=== PATIENT | male | born 1980 | race Caucasian/White ===

== ENCOUNTER → 2017-01-16 07:27 | Emergency (ER) | payer BC ==
[~2017-01-16 07:27] MED LIST: NS 0.9% 1000 ML* 1,000 ML IV ONE; Ondansetron INJ* 2 MG/ML VIAL IV ONE
[2017-01-16 08:48] LABS: Hematocrit 47 % (42-52); Mean Corpuscular HGB Conc 34 g/dl (31-36); Mean Corpuscular Hemoglobin 29 pg (27-31); Mean Corpuscular Volume 85 fL (80-94); Mean Platelet Volume 8 um3 (7.4-10.4); Red Blood Count 5.51 10^6/ul (4.0-5.4); Red Cell Distribution Width 13 % (10.5-15); White Blood Count 14.1 10^3/ul (3.5-10.8)
--- NOTE | 2017-01-16 08:55 | RAD ---
CLINICAL HISTORY: Right flank pain COMPARISON: None TECHNIQUE: Multiple contiguous axial CT scans were obtained of the abdomen and pelvis, without intravenous contrast enhancement. Coronal and sagittal multiplanar reformations are submitted for review. Oral contrast was not administered. FINDINGS: The study is limited by the lack of intravenous contrast. This limits evaluation of the solid organs and vasculature. LUNG BASES: The lung bases are clear. LIVER: The liver is diffusely low in attenuation compared to the spleen. There are no focal hepatic parenchymal masses. BILE DUCTS: There is no intrahepatic or extrahepatic biliary dilatation. GALLBLADDER: The gallbladder is normal, without pericholecystic inflammatory change. PANCREAS: The pancreas is normal, without mass or ductal dilatation. SPLEEN: Normal in size and appearance. UPPER GI TRACT: Evaluation of the gastrointestinal tract is limited by incomplete gastric distention. The upper GI tract is unremarkable. SMALL BOWEL AND MESENTERY: The small bowel is normal in contour, course, and caliber. There is no obstruction or dilatation. COLON: The colon is normal in contour, course, caliber. There is no pericolonic inflammatory change. There is a tubular, vermiform, hollow viscus that is blind ending, and originates from the cecum, consistent with a normal appendix. There is no periappendiceal inflammatory change. This is best seen on axial images 95 through 104 ADRENALS: Normal bilaterally. KIDNEYS: There are punctate nonobstructing right renal calyceal stones measuring up to 0.1 cm in size. There is no appreciable hydronephrosis. BLADDER: The bladder is smooth in contour. PELVIC ORGANS: The prostate gland is normal. The seminal vesicles are symmetric. AORTA: The aorta is normal. IVC: Unremarkable LYMPH NODES: There is no lymphadenopathy by size criteria. ABDOMINAL WALL: There is no evidence for abdominal wall hernia. BONES AND SOFT TISSUES: Unremarkable OTHER: None IMPRESSION: 1. FATTY LIVER. 2. PUNCTATE NONOBSTRUCTING RIGHT RENAL CALYCEAL STONES. 3. NORMAL APPENDIX
[2017-01-16 09:01] LABS: Albumin 4.6 g/dL (3.2-5.2); BUN/Creatinine Ratio 14.1 (8-20); C Reactive Protein 1.14 mg/L (< 5.00); Calcium 9.5 mg/dL (8.6-10.3); EGFR African American 121.1 (>60); EGFR Non-African American 94.2 (>60); Globulin 3.1 g/dL (2-4); Potassium 3.8 mmol/L (3.5-5.0); Total Bilirubin 0.7 mg/dL (0.2-1.0); Total Protein 7.7 g/dL (6.4-8.9)
--- NOTE | 2017-01-16 09:39 | RAD ---
INDICATION: Right-sided abdominal pain. COMPARISON: Renal stone CT same date TECHNIQUE: Longitudinal and transverse scans of the right upper quadrant were obtained. Doppler interrogation of the hepatic and portal venous system was performed. FINDINGS: Liver: The liver is normal in size but is echogenic compatible with hepatic steatosis. There are no focal masses. The liver measures 17.1 cm in cephalocaudal dimension. Vessels: There is normal hepatic and portal venous flow. Bile ducts: There is no evidence of intrahepatic or extrahepatic ductal dilatation. The common duct measures 0.5 cm. Gallbladder: The sonographic appearance of the gallbladder is normal. There is no evidence of cholelithiasis, thickening of the gallbladder wall, or pericholecystic fluid. Pancreas: The visualized pancreas appears normal Right kidney: The right kidney is normal in size and echogenicity. There are no masses or calculi. There is no evidence of hydronephrosis. The right kidney measures 11.2 x 5.1 x 5.1 cm. IVC and aorta: The aorta and superior vena cava appear normal. Fluid: There is no ascites. Other: None. IMPRESSION: NORMAL GALLBLADDER. HEPATIC STEATOSIS
[2017-01-16 10:10] LABS: Urine Bilirubin Negative (Negative); Urine Glucose Negative (Negative); Urine Nitrite Negative (Negative)
[2017-01-16 12:36] VITALS: BP 134/80
--- NOTE | 2017-01-16 22:48 | ED ---
Yao Sommer Alfonso, scribed for Kallie Cano MD on 01/16/17 at 0806 . Abdominal Pain/Male - HPI Summary HPI Summary: This patient is a 36 year old M presenting to [facility] accompanied by and two sons with a chief complaint of sharp RUQ and right-sided flank abdominal pain since 3 days ago. Pt reports the pain radiates to his back. Pt rates the pain 6/ 10 in severity. Symptoms aggravated by standing and alleviated by nothing. Sx not alleviated by antacids and a warm bath. Pt reports nausea. Pt denies hematuria. Pt denies PSHx and PMHx. - History of Current Complaint Chief Complaint: EDFlankPain Stated Complaint: RT FLANK PAIN Time Seen by Provider: 01/16/17 07:47 Hx Obtained From: Patient Onset/Duration: Sudden Onset, Lasting Days - 3, Still Present Timing: Constant Severity Initially: Moderate Severity Currently: Moderate Pain Intensity: 6 Pain Scale Used: 0-10 Numeric Location: Discrete At: RUQ, Flank - Right-sided Radiates: Yes Radiates to: Back Character: Sharp Aggravating Factor(s): Other: - Standing Alleviating Factor(s): Nothing Associated Signs And Symptoms: Positive: Nausea, Other - Negative hematuria. Negative: Fever, Chest Pain, Constipation, Urinary Symptoms - Allergies/Home Medications Allergies/Adverse Reactions: Allergies Allergy/AdvReac Type Severity Reaction Status Date / Time No Known Allergies Allergy Verified 04/04/13 22:40 PMH/Surg Hx/FS Hx/Imm Hx Previously Healthy: Yes Endocrine/Hematology History: Denies: Hx Diabetes Cardiovascular History: Denies: Hx Congestive Heart Failure, Hx Hypertension History: Denies: Hx Renal Disease - Immunization History Date of Tetanus Vaccine: uknown to patient Infectious Disease History: No Infectious Disease History: Denies: Traveled Outside the [place] in Last 30 Days - Family History Known Family History: Positive: Other - Negative cancer Negative: Cardiac Disease, Diabetes - Social History Lives: With Family Alcohol Use: None Substance Use Type: Reports: None Hx Tobacco Use: No Smoking Status (MU): Never Smoked Tobacco Review of Systems Constitutional: Negative Respiratory: Negative Positive: Abdominal Pain - Sharp RUQ and right-sided flank., Nausea Negative: hematuria Musculoskeletal: Negative Skin: Negative Neurological: Negative Psychological: Normal All Other Systems Reviewed And Are Negative: Yes Physical Exam Triage Information Reviewed: Yes Vital Signs On Initial Exam: Initial Vitals Temp Pulse Resp BP Pulse Ox 97.8 F 82 18 118/91 99 01/16/17 07:28 01/16/17 07:28 01/16/17 07:28 01/16/17 07:28 01/16/17 07:28 Vital Signs Reviewed: Yes Appearance: Positive: No Pain Distress, Well-Nourished, Ill-Appearing Skin: Positive: Warm, Skin Color Reflects Adequate Perfusion Head/Face: Positive: Normal Head/Face Inspection Eyes: Positive: Conjunctiva Clear ENT: Positive: Normal ENT inspection Neck: Positive: Supple, Nontender, No Lymphadenopathy Respiratory/Lung Sounds: Positive: Clear to Auscultation, Breath Sounds Present Cardiovascular: Positive: RRR, Pulses are Symmetrical in both Upper and Lower Extremities. Negative: Murmur Abdomen Description: Positive: No Organomegaly, Soft, Other: - RUQ tenderness and tenderness along ant rectus muscle. Negative: CVA Tenderness (R), CVA Tenderness (L), Distended, Guarding, Hepatomegaly, McBurney's Point Tenderness, Peritoneal Signs, Pulsatile Mass Bowel Sounds: Positive: Present Musculoskeletal: Positive: Strength/ROM Intact Neurological: Positive: Sensory/Motor Intact, Alert, Oriented to Person Place, Time, CN Intact II-III, Facial Symmetry, Speech Normal. Negative: Facial Droop , Focal Deficit @, Slurred Speech Psychiatric: Positive: Normal Diagnostics - Vital Signs Vital Signs Temp Pulse Resp BP Pulse Ox 01/16/17 07:31 97.8 F 82 18 118/91 96 01/16/17 07:28 97.8 F 82 18 118/91 99 - Laboratory Lab Results: Lab Results 01/16/17 01/16/17 01/16/17 Range/Units 08:37 08:37 08:37 WBC 14.1 H (3.5-10.8) 10^3/ul RBC 5.51 H (4.0-5.4) 10^6/ul Hgb 16.0 (14.0-18.0) g/dl Hct 47 (42-52) % MCV 85 (80-94) fL MCH 29 (27-31) pg MCHC 34 (31-36) g/dl RDW 13 (10.5-15) % Plt Count 244 (150-450) 10^3/ul MPV 8 (7.4-10.4) um3 Neut % (Auto) 73.8 (38-83) % Lymph % (Auto) 18.9 L (25-47) % [place] % (Auto) 6.8 (1-9) % Eos % (Auto) 0.4 (0-6) % Baso % (Auto) 0.1 (0-2) % Absolute Neuts (auto) 10.4 H (1.5-7.7) 10^3/ul Absolute Lymphs (auto) 2.7 (1.0-4.8) 10^3/ul Absolute Monos (auto) 1.0 H (0-0.8) 10^3/ul Absolute Eos (auto) 0.1 (0-0.6) 10^3/ul Absolute Basos (auto) 0 (0-0.2) 10^3/ul Absolute Nucleated RBC 0.01 10^3/ul Nucleated RBC % 0 Sodium 136 (133-145) mmol/L Potassium 3.8 (3.5-5.0) mmol/L Chloride 101 (101-111) mmol/L Carbon Dioxide 29 (22-32) mmol/L Anion Gap 6 (2-11) mmol/L BUN 13 (6-24) mg/dL Creatinine 0.92 (0.67-1.17) mg/dL Est GFR ( Amer) 121.1 (>60) Est GFR (Non-Af Amer) 94.2 (>60) BUN/Creatinine Ratio 14.1 (8-20) Glucose 90 (70-100) mg/dL Lactic Acid 1.2 (0.5-2.0) mmol/L Calcium 9.5 (8.6-10.3) mg/dL Total Bilirubin 0.70 (0.2-1.0) mg/dL AST 19 (13-39) U/L ALT 32 (7-52) U/L Alkaline Phosphatase 36 (34-104) U/L C-Reactive Protein 1.14 (< 5.00) mg/L Total Protein 7.7 (6.4-8.9) g/dL Albumin 4.6 (3.2-5.2) g/dL Globulin 3.1 (2-4) g/dL Albumin/Globulin Ratio 1.5 (1-3) Amylase 49 (29-103) U/L Lipase 26 (11.0-82.0) U/L Urine Color Urine Appearance Urine pH (5-9) Ur Specific [place] (1.010-1.030) Urine Protein (Negative) Urine Ketones (Negative) Urine Blood (Negative) Urine Nitrate (Negative) Urine Bilirubin (Negative) Urine Urobilinogen (Negative) Ur Leukocyte Esterase (Negative) Urine Glucose (Negative) 01/16/17 Range/Units 10:00 WBC (3.5-10.8) 10^3/ul RBC (4.0-5.4) 10^6/ul Hgb (14.0-18.0) g/dl Hct (42-52) % MCV (80-94) fL MCH (27-31) pg MCHC (31-36) g/dl RDW (10.5-15) % Plt Count (150-450) 10^3/ul MPV (7.4-10.4) um3 Neut % (Auto) (38-83) % Lymph % (Auto) (25-47) % [place] % (Auto) (1-9) % Eos % (Auto) (0-6) % Baso % (Auto) (0-2) % Absolute Neuts (auto) (1.5-7.7) 10^3/ul Absolute Lymphs (auto) (1.0-4.8) 10^3/ul Absolute Monos (auto) (0-0.8) 10^3/ul Absolute Eos (auto) (0-0.6) 10^3/ul Absolute Basos (auto) (0-0.2) 10^3/ul Absolute Nucleated RBC 10^3/ul Nucleated RBC % Sodium (133-145) mmol/L Potassium (3.5-5.0) mmol/L Chloride (101-111) mmol/L Carbon Dioxide (22-32) mmol/L Anion Gap (2-11) mmol/L BUN (6-24) mg/dL Creatinine (0.67-1.17) mg/dL Est GFR ( Amer) (>60) Est GFR (Non-Af Amer) (>60) BUN/Creatinine Ratio (8-20) Glucose (70-100) mg/dL Lactic Acid (0.5-2.0) mmol/L Calcium (8.6-10.3) mg/dL Total Bilirubin (0.2-1.0) mg/dL AST (13-39) U/L ALT (7-52) U/L Alkaline Phosphatase (34-104) U/L C-Reactive Protein (< 5.00) mg/L Total Protein (6.4-8.9) g/dL Albumin (3.2-5.2) g/dL Globulin (2-4) g/dL Albumin/Globulin Ratio (1-3) Amylase (29-103) U/L Lipase (11.0-82.0) U/L Urine Color Yellow Urine Appearance Clear Urine pH 7.0 (5-9) Ur Specific [place] 1.015 (1.010-1.030) Urine Protein Negative (Negative) Urine Ketones Negative (Negative) Urine Blood Negative (Negative) Urine Nitrate Negative (Negative) Urine Bilirubin Negative (Negative) Urine Urobilinogen Negative (Negative) Ur Leukocyte Esterase Negative (Negative) Urine Glucose Negative (Negative) Result Diagrams: 01/16/17 08:37 01/16/17 08:37 Lab Statement: Any lab studies that have been ordered have been reviewed, and results considered in the medical decision making process. - CT CT A/P CT Interpretation Completed By: Radiologist - 1. FATTY LIVER. 2. PUNCTATE NONOBSTRUCTING RIGHT RENAL CALYCEAL STONES. 3. NORMAL APPENDIX - Additional Comments Diagnostic Additional Comments: US GALLBLADDER: NORMAL GALLBLADDER. HEPATIC STEATOSIS per radiologist. Re-Evaluation - Re-Evaluation First Eval Re-Evaluation Time: 12:05 Change: Improved - wants to go home, informed of study results. Second Eval Re-Evaluation Time: 12:10 Comment: Pt is still in pain. Discussed lab results and plan for discharge. Patient understands and agrees. Abdominal Pain Fem Course/Dx - Course Assessment/Plan: 37 year old M presents to the ED with a CC of sharp RUQ and right-sided flank abdominal pain since 3 days ago. Pt reports the pain radiates to his back. Pt reports nausea. Pt denies hematuria. US GALLBLADDER reveals NORMAL GALLBLADDER. HEPATIC STEATOSIS. CT A/P reveals 1. FATTY LIVER. 2. PUNCTATE NONOBSTRUCTING RIGHT RENAL CALYCEAL STONES. 3. NORMAL APPENDIX. Blood work shows WBC 14.1, RBC 5.51, Lymph % 18.9, Absolute Neuts 10.4, and Absolute Monos 1.0. UA shows negative results. Patient will be discharged home with follow up from Dr. Mills PCP. Pt is agreeable with this plan. Pt medications reviewed this visit. - Diagnoses Differential Diagnosis/HQI/PQRI: ACS, AMI, Gall Bladder Disease, Pancreatitis, Peptic Ulcer Disease, Renal Colic, Ureteral Stone Provider Diagnoses: Abdominal pain, Hepatic steatosis Discharge - Discharge Plan Condition: Stable Disposition: HOME Patient Education Materials: Biliary Colic (ED), Low Fat Diet (ED), Non- Alcoholic Fatty Liver Disease (ED) Referrals: Nemo Mills MD [Primary Care Provider] - 2 Days Additional Instructions: You may take ibuprofen for pain. Avoid fatty foods. Your ultrasound and CT scan showed a normal gallbladder and a fatty liver. The gallbladder still may not be functioning correctly. You may need a HIDA scan. Have definite follow up with your doctor this week. Return to the ER if you have new or worsening symptoms, including fever, vomiting, or doubled over in pain. The documentation as recorded by the Yao roger Alfonso accurately reflects the service I personally performed and the decisions made by , Kallie Cano MD.
== END | disposition home or self-care (01) ==
LOC: ED 07:27
DX: R10.11 Right upper quadrant pain (principal); K76.0 Fatty (change of) liver, not elsewhere classified; N20.0 Calculus of kidney
CPT/HCPCS: 36415; 74176; 76705; 80053; 81003; 82150; 83605; 83690; 85025; 86140; 96360; 99283; J2405

== ENCOUNTER 2017-01-17 07:42 | Emergency (ER) | payer BC ==
[2017-01-17] MEDS ORDERED: NS 0.9% 1000 ML* 1,000 ML IV ONE (08:27)
[2017-01-17] MEDS ORDERED: Famotidine IV* 10 MG/ML 2 ML (20 mg) IV ONE (08:27)
[2017-01-17] MEDS ORDERED: Ketorolac INJ* 30 MG/ML 1 ML VIAL IV ONE (08:27)
--- NOTE | 2017-01-17 09:09 | RAD ---
HISTORY: Abdominal pain, flank pain COMPARISONS: CT dated January 16, 2017 VIEWS: Frontal views of the abdomen. FINDINGS: BOWEL: There is a nonobstructive bowel gas pattern. There is a large amount of stool within the colon. CALCULI: There are no abnormal calculi. The punctate calculi noted on CT are not clearly visible on the current examination. BONES AND SOFT TISSUES: There are no osseous abnormalities. OTHER FINDINGS: The lung bases are clear. There is no subphrenic gas. IMPRESSION: NONOBSTRUCTIVE BOWEL GAS PATTERN. LARGE AMOUNT OF STOOL THROUGHOUT THE COLON.
[2017-01-17 09:40] LABS: Hematocrit 49 % (42-52); Hemoglobin 17.1 g/dl (14.0-18.0); Mean Corpuscular HGB Conc 35 g/dl (31-36); Mean Corpuscular Hemoglobin 30 pg (27-31); Mean Corpuscular Volume 85 fL (80-94); Mean Platelet Volume 8 um3 (7.4-10.4); Red Blood Count 5.81 10^6/ul (4.0-5.4); Red Cell Distribution Width 13 % (10.5-15); White Blood Count 7.3 10^3/ul (3.5-10.8)
[2017-01-17 10:01] LABS: Albumin 4.7 g/dL (3.2-5.2); BUN/Creatinine Ratio 12.5 (8-20); C Reactive Protein 6.35 mg/L (< 5.00); Calcium 9.8 mg/dL (8.6-10.3); EGFR African American 105.1 (>60); EGFR Non-African American 81.8 (>60); Globulin 3.3 g/dL (2-4); Total Bilirubin 0.6 mg/dL (0.2-1.0)
[2017-01-17] MEDS ORDERED: Polyethylene Glycol 3350* 17 GM PACKET ONE (10:41)
[2017-01-17 10:43] VITALS: BP 110/67
[2017-01-17] MEDS ORDERED: Polyethylene Glycol 3350* 17 GM PACKET PO SCH (11:00)
--- NOTE | 2017-01-17 11:02 | ED ---
Mariama Sommer Auryana, scribed for Ashish Goyal MD on 01/17/17 at 0818 . Abdominal Pain/Male - HPI Summary HPI Summary: 36 year old male presents to the ED for worsening RUQ abdominal pain. He reports that the pain is now radiating to the center and left side of the abdomen - now a 7/10. Patient also has nausea, "reflux" - abnormal per patient, and also reports blurry/double vision reports due to driving hunched over. He denies any fevers, chills, vomiting, dysuria, or any hematuria. Last BM - yesterday, none today. He was seen here in the ED yesterday - negative CT and negative US to r/o cholecystitis, and recommended for f/u with PCP and instructed to return if pain worsens or does not improve. Patient reports that he has made a f/u appointment with his PCP for but the pain has since then worsened and was unable to go to work this morning. Patient denies any history of abdominal pain before previous visit. He is not on any chronic medications. He denies any PMHx of DM or any other disorders/diseases. - History of Current Complaint Chief Complaint: EDAbdPain Stated Complaint: RT ABD/FLANK/BACK PAIN Time Seen by Provider: 01/17/17 08:20 Hx Obtained From: Patient Onset/Duration: Gradual Onset, Lasting Days, Still Present Timing: Constant Severity Initially: Moderate Severity Currently: Moderate Pain Intensity: 7 Pain Scale Used: 0-10 Numeric Location: Discrete At: RUQ Radiates: Yes Radiates to: Other - to the center and left of the abdomen Associated Signs And Symptoms: Positive: Nausea, Other - diplopia/blurry vision , reflux. Negative: Fever, Cough, Urinary Symptoms, Vomiting Similar Episode/Dx As:: seen here in ED - Allergies/Home Medications Allergies/Adverse Reactions: Allergies Allergy/AdvReac Type Severity Reaction Status Date / Time No Known Allergies Allergy Verified 04/04/13 22:40 PMH/Surg Hx/FS Hx/Imm Hx Previously Healthy: Yes Endocrine/Hematology History: Denies: Hx Diabetes Cardiovascular History: Denies: Hx Congestive Heart Failure, Hx Hypertension History: Denies: Hx Renal Disease - Immunization History Date of Tetanus Vaccine: uknown to patient Infectious Disease History: Yes Infectious Disease History: Denies: Traveled Outside the [place] in Last 30 Days - Family History Known Family History: Positive: Other - Negative cancer Negative: Cardiac Disease, Diabetes - Social History Occupation: Employed Full-time - other Lives: With Family - domestic female partner Alcohol Use: None Substance Use Type: Reports: None Hx Tobacco Use: No Smoking Status (MU): Never Smoked Tobacco Review of Systems Constitutional: Negative Negative: Fever Positive: Blurred Vision, Diplopia ENT: Negative Cardiovascular: Negative Respiratory: Negative Positive: Abdominal Pain, Nausea Genitourinary: Negative Musculoskeletal: Negative Skin: Negative Neurological: Negative Psychological: Normal All Other Systems Reviewed And Are Negative: Yes Physical Exam - Summary Physical Exam Summary: VITAL SIGNS: Reviewed. GENERAL: Patient is a well-developed and nourished male who is lying comfortable in the stretcher. Patient is not in any acute respiratory distress. HEAD AND FACE: Normocephalic and atraumatic. EYES: PERRLA, EOMI x 2, No injected conjunctiva. EARS: Hearing grossly intact. Ear canals and tympanic membranes are WNL. MOUTH: Oropharynx within normal limits. NECK: Supple, trachea is midline, no adenopathy, no JVD. CHEST: Symmetric, no tenderness at palpation LUNGS: Clear to auscultation bilaterally. No wheezing or crackles. CVS: RRR, S1 and S2 present, no murmurs or gallops appreciated. ABDOMEN: Soft, with diffuse abdominal tenderness. No signs of distention. Positive bowel sounds. No rebound no guarding, and no masses palpated. No abdominal bruit or pulsations. EXTREMITIES: FROM in all major joints, no edema, no cyanosis or clubbing. NEURO: Alert and oriented x 3. No acute neurological deficits. Speech is normal. SKIN: Dry and warm Triage Information Reviewed: Yes Vital Signs On Initial Exam: Initial Vitals Temp Pulse Resp BP Pulse Ox 98.1 F 83 18 122/88 99 01/17/17 07:44 01/17/17 07:44 01/17/17 07:44 01/17/17 07:44 01/17/17 07:44 Vital Signs Reviewed: Yes Diagnostics - Vital Signs Vital Signs Temp Pulse Resp BP Pulse Ox 01/17/17 08:01 97.7 F 67 12 125/80 98 01/17/17 07:44 98.1 F 83 18 122/88 99 - Laboratory Lab Results: Lab Results 01/17/17 01/17/17 01/17/17 Range/Units 09:16 09:16 09:16 WBC 7.3 (3.5-10.8) 10^3/ul RBC 5.81 H (4.0-5.4) 10^6/ul Hgb 17.1 (14.0-18.0) g/dl Hct 49 (42-52) % MCV 85 (80-94) fL MCH 30 (27-31) pg MCHC 35 (31-36) g/dl RDW 13 (10.5-15) % Plt Count 231 (150-450) 10^3/ul MPV 8 (7.4-10.4) um3 Neut % (Auto) 62.8 (38-83) % Lymph % (Auto) 28.0 (25-47) % [place] % (Auto) 8.2 (1-9) % Eos % (Auto) 0.8 (0-6) % Baso % (Auto) 0.2 (0-2) % Absolute Neuts (auto) 4.6 (1.5-7.7) 10^3/ul Absolute Lymphs (auto) 2.0 (1.0-4.8) 10^3/ul Absolute Monos (auto) 0.6 (0-0.8) 10^3/ul Absolute Eos (auto) 0.1 (0-0.6) 10^3/ul Absolute Basos (auto) 0 (0-0.2) 10^3/ul Absolute Nucleated RBC 0.01 10^3/ul Nucleated RBC % 0.1 Sodium 134 (133-145) mmol/L Potassium 4.0 (3.5-5.0) mmol/L Chloride 100 L (101-111) mmol/L Carbon Dioxide 28 (22-32) mmol/L Anion Gap 6 (2-11) mmol/L BUN 13 (6-24) mg/dL Creatinine 1.04 (0.67-1.17) mg/dL Est GFR ( Amer) 105.1 (>60) Est GFR (Non-Af Amer) 81.8 (>60) BUN/Creatinine Ratio 12.5 (8-20) Glucose 93 (70-100) mg/dL Lactic Acid 0.7 (0.5-2.0) mmol/L Calcium 9.8 (8.6-10.3) mg/dL Total Bilirubin 0.60 (0.2-1.0) mg/dL AST 18 (13-39) U/L ALT 30 (7-52) U/L Alkaline Phosphatase 40 (34-104) U/L C-Reactive Protein 6.35 H (< 5.00) mg/L Total Protein 8.0 (6.4-8.9) g/dL Albumin 4.7 (3.2-5.2) g/dL Globulin 3.3 (2-4) g/dL Albumin/Globulin Ratio 1.4 (1-3) Amylase 55 (29-103) U/L Lipase 24 (11.0-82.0) U/L Result Diagrams: 01/17/17 09:16 01/17/17 09:16 Lab Statement: Any lab studies that have been ordered have been reviewed, and results considered in the medical decision making process. - Radiology ABD XR Xray Interpretation: Positive (See Comments) - IMPRESSION: NONOBSTRUCTIVE BOWEL GAS PATTERN. LARGE AMOUNT OF STOOL THROUGHOUT THE COLON. Radiology Interpretation Completed By: Radiologist - EKG 09:32 EKG Interpretation: NSR at 74 bpm, no ST elevation Re-Evaluation - Re-Evaluation First Eval Re-Evaluation Time: 10:12 - dicussed labs and imaging Abdominal Pain Fem Course/Dx - Course Assessment/Plan: 36 year old male presents to the ED for worsening RUQ abdominal pain. He reports that the pain is now radiating to the center and left side of the abdomen - now a 7/10. Patient also has nausea, "reflux" - abnormal per patient, and also reports blurry/double vision reports due to driving hunched over. He denies any fevers, chills, vomiting, dysuria, or any hematuria. Last BM - yesterday, none today. He was seen here in the ED yesterday - negative CT and negative US to r/o cholecystitis, and recommended for f/u with PCP and instructed to return if pain worsens or does not improve. Patient reports that he has made a f/u appointment with his PCP for but the pain has since then worsened and was unable to go to work this morning. Patient denies any history of abdominal pain before previous visit. He is not on any chronic medications. He denies any PMHx of DM or any other disorders/ diseases. Test results shows WBC 7.3 with has decreased from yesterdays result - 14.1 without bands. CMP WNL except CRP with has decreased to 7.9 from yesterday. Yesterday UA was negative. Yesterday, he had a RUQ US showing fatty liver and hepatic steatosis, and had a CT ABD/PEL to r/o appendicitis, diverticulitis, and urolithiasis. EKG: NSR at 74 bpm, no ST elevation. On physical exam, patient has diffuse abdominal pain. Therefore I decided to do an abdominal XR. XRAY shows large amount of stool in the colon without other abnormalities. Since blood work is actually improving from yesterday and the images are negative, the patient is possibly having symptoms secondary to constipation. Patient was given Miralax and will discharge home with PCP F/U. Patient was also given Toradol for pain and pain subsided patient reports pain 0/10. He was instructed to return to ED if he develops any fever, chills, N/V, or any increased pain. He understands and agrees. Patient is hemodynamically stable and A&O x3. Dx: abdominal pain - possibly secondary to constipation - Diagnoses Differential Diagnosis/HQI/PQRI: Constipation, Diverticulitis, Ureteral Stone Provider Diagnoses: abdominal pain, Constipation Discharge - Discharge Plan Condition: Stable Disposition: HOME Prescriptions: Polyethylene Glycol 3350* [Miralax*] 17 gm PO DAILY #12 packet Patient Education Materials: Acute Abdominal Pain (ED), Constipation (ED) Referrals: Nemo Mills MD [Primary Care Provider] - 2 Days (PLEASE KEEP SCHEDULED APPOINTMENT FOR Monday01/18/17) The documentation as recorded by the Mariama roger Auryana accurately reflects the service I personally performed and the decisions made by me, Ashish Goyal MD.
== END 2017-01-17 10:45 | disposition home or self-care (01) ==
LOC: ED 07:42
DX: K59.00 Constipation, unspecified (principal); R10.11 Right upper quadrant pain; R11.0 Nausea; H53.8 Other visual disturbances
CPT/HCPCS: 36415; 74020; 80053; 82150; 83605; 83690; 85025; 86140; 86703; 93005; 96374; 96375; 99282; A9270-GY